=== PATIENT | male | born 1945 | race Caucasian/White ===

== ENCOUNTER → 2021-02-21 08:50 | Outpatient (CLI) | payer MEDICARE, SELFPAY ==
[2021-02-21 10:13] LABS: Absolute Lymphocyte Count 0.96 X10^3/uL (0.83-4.51); Absolute Neutrophil Count 2.7 X10^3/uL (2.0-7.7); Basophil# 0.06 X10^3/uL; Basophil% 1.3 % (0-1); Eosinophil# 0.31 X10^3/uL; Eosinophils% 6.9 % (0-5); Hematocrit 43.7 % (40-54); Hemoglobin 14.2 g/dL (13.0-16.5); Lymphocyte # 0.96 X10^3/ul (0.83-4.51); Lymphocyte % 21.3 % (19-41); Mean Corp Hgb Conc 32.5 g/dL (32-36); Mean Corpuscular Hgb 29.5 pg (27.0-32.0); Mean Corpuscular Volume 90.7 fL (80-94); Mean Platelet Vol. 10.9 fl (6.2-12.0); Monocyte# 0.44 X10^3/uL; Monocyte% 9.8 % (0-10); NRBC Flagged by Analyzer 0 % (0-5); Neutrophil # 2.69 X10^3/uL (2.7-7.7); Neutrophil % 59.8 % (47-70); Platelet Count 212 K/mm3 (150-450); RBC Distribution Width CV 14.5 % (11.6-14.6); RBC Distribution Width SD 48.3 fl (35.1-43.9); Red Blood Count 4.82 M/mm3 (4.6-6.2); White Blood Count 4.5 K/mm3 (4.4-11.0)
[2021-02-21 10:38] LABS: Hemoglobin A1c 6.7 % (3.8-5.6)
[2021-02-21 12:57] LABS: ALB/GLOB Ratio 0.9 RATIO (0.9-2.4); AST(SGOT) 41 U/L (15-37); Alanine Aminotransfer ALT/SGPT 42 U/L (16-61); Albumin, Serum 3.2 g/dL (3.2-5.0); Alkaline Phosphatase 155 U/L (45-117); Anion Gap 8 (5-15); BUN 17 mg/dL (7-18); BUN/Creat Ratio 15.6 RATIO (10-20); Calcium,Total 8.7 mg/dL (8.5-10.1); Chloride 106 mmol/L (98-107); Cholesterol 114 mg/dL (200); Creatinine, Serum 1.09 mg/dL (0.70-1.30); EST Glomerular Filtration Rate 70 mL/min (>60); Est Glom Filt Rate - Afr Amer 85 mL/min (>60); Globulin 3.5 g/dL (2.2-4.2); Glucose 119 mg/dL (74-106); High Density Lipoprotein 53 mg/dL; Potassium 3.7 mmol/L (3.5-5.1); Protein, Total 6.7 g/dL (6.4-8.2); Sodium Level 140 mmol/L (136-145); Thyroid Stim Hormone (TSH) 3.07 uIU/mL (0.358-3.74); Triglycerides 163 mg/dL; Very Low Density Lipoprotein 33 mg/dL (5-40)
[2021-02-21 15:47] LABS: Microalbumin,Random Urine 15.7 mg/L (NO RANGE EST.); Microalbumin:Creatinine Ratio 14.4 mg/g CRE (<30 mg/g CRE)
== END ==
PROVIDERS: PCP Family Medicine; Visit Provider Family Medicine
DX: E11.9 Type 2 diabetes mellitus without complications (principal)
CPT/HCPCS: 36415; 80053; 80061; 82043; 82570; 83036; 84443; 85025

== ENCOUNTER 2021-06-04 09:35 | Outpatient (CLI) | payer MEDICARE, SELFPAY ==
[2021-06-04 12:18] LABS: Absolute Lymphocyte Count 1.21 X10^3/uL (0.83-4.51); Basophil# 0.06 X10^3/uL; Basophil% 1.2 % (0-1); Eosinophil# 0.32 X10^3/uL; Eosinophils% 6.2 % (0-5); Hematocrit 43.7 % (40-54); Hemoglobin 14.3 g/dL (13.0-16.5); Lymphocyte # 1.21 X10^3/ul (0.83-4.51); Lymphocyte % 23.5 % (19-41); Mean Corp Hgb Conc 32.7 g/dL (32-36); Mean Corpuscular Hgb 30.3 pg (27.0-32.0); Mean Corpuscular Volume 92.6 fL (80-94); Mean Platelet Vol. 10.9 fl (6.2-12.0); Monocyte% 9.7 % (0-10); NRBC Flagged by Analyzer 0 % (0-5); Neutrophil # 3.02 X10^3/uL (2.7-7.7); Neutrophil % 58.6 % (47-70); Platelet Count 219 K/mm3 (150-450); RBC Distribution Width CV 13.6 % (11.6-14.6); RBC Distribution Width SD 46.8 fl (35.1-43.9); Red Blood Count 4.72 M/mm3 (4.6-6.2); White Blood Count 5.2 K/mm3 (4.4-11.0)
[2021-06-04 12:49] LABS: Hemoglobin A1c 7.1 % (3.8-5.6)
[2021-06-04 12:54] LABS: AST(SGOT) 38 U/L (15-37); Alanine Aminotransfer ALT/SGPT 40 U/L (16-61); Albumin, Serum 3.5 g/dL (3.2-5.0); Alkaline Phosphatase 174 U/L (45-117); Anion Gap 6 (5-15); BUN 20 mg/dL (7-18); Chloride 106 mmol/L (98-107); Cholesterol 125 mg/dL (200); Creatinine, Serum 1.11 mg/dL (0.70-1.30); EST Glomerular Filtration Rate 69 mL/min (>60); Est Glom Filt Rate - Afr Amer 83 mL/min (>60); Globulin 3.5 g/dL (2.2-4.2); Glucose 143 mg/dL (74-106); High Density Lipoprotein 48 mg/dL; Magnesium 1.9 mg/dL (1.6-2.6); Potassium 3.9 mmol/L (3.5-5.1); Sodium Level 138 mmol/L (136-145); Triglycerides 153 mg/dL
[2021-06-04 12:55] LABS: Thyroid Stim Hormone (TSH) 2.57 uIU/mL (0.358-3.74); Very Low Density Lipoprotein 31 mg/dL (5-40)
[2021-06-05 12:35] LABS: GGTP 64 U/L (15-85)
== END 2021-06-04 23:59 | disposition home or self-care (01) ==
PROVIDERS: PCP Family Medicine; Referring Provider Family Medicine; Visit Provider Family Medicine
DX: R74.8 Abnormal levels of other serum enzymes (principal); I50.22 Chronic systolic (congestive) heart failure; E11.9 Type 2 diabetes mellitus without complications
CPT/HCPCS: 36415; 80053; 80061; 82977; 83036; 83735; 84443; 85025

== ENCOUNTER 2021-06-05 14:08 | Outpatient (CLI) | payer MEDICARE, SELFPAY ==
[2021-06-05 16:01] LABS: Microalbumin,Random Urine 7.7 mg/L (NO RANGE EST.); Microalbumin:Creatinine Ratio 13.8 mg/g CRE (<30 mg/g CRE)
== END 2021-06-05 23:59 | disposition home or self-care (01) ==
LOC: LABSPEC 14:09
PROVIDERS: PCP Family Medicine; Referring Provider Family Medicine; Visit Provider Family Medicine
DX: E11.9 Type 2 diabetes mellitus without complications (principal)
CPT/HCPCS: 82043; 82570

== ENCOUNTER 2021-06-23 15:23 | Emergency (ER) | payer MEDICARE, SELFPAY ==
[2021-06-23 15:23] VITALS: BP 155/66; PULSE 60; RESP 16; TEMP 36.4; O2SAT 98; BMI 38.2
--- NOTE | 2021-06-23 15:50 | EX.ED.UPPERE ---
HPI <JOSETTE Stern - Last Filed: 06/23/21 18:20> History of Present Illness HPI Narrative: 76-year-old male with PMH of diabetes presents with redness on the back of his left hand and wrist that he noticed yesterday. He is right-hand dominant. There was no injury. No fever, chills, nausea, vomiting. No recent IV. No history of DVT/PE or risk factors Chief Complaint: Upper Extremity Injury PFSH <JOSETTE Stern - Last Filed: 06/23/21 18:20> COUNTS INCLUDE 234 BEDS AT THE [facility] Medical History High blood triglycerides High cholesterol History of cardiac murmur History of diabetes mellitus History of heart failure History of skin cancer Hypertension Presence of combination internal cardiac defibrillator (ICD) and pacemaker Ventricular tachycardia Home Medications amiodarone 200 mg tablet 200 mg PO DAILY 12/14/20 [History Last Taken Unknown] aspirin 81 mg tablet,delayed release 81 mg PO DAILY 12/14/20 [History Last Taken Unknown] atorvastatin 20 mg tablet 20 mg PO DAILY 12/14/20 [History Last Taken Unknown] bupropion HCl 150 mg 24 hr tablet, extended release 150 mg PO QAM 12/14/20 [History Last Taken Unknown] dapagliflozin 5 mg-metformin ER 1,000 mg tablet,extended release 24hr 1 tab PO DAILY 12/14/20 [History Last Taken Unknown] lisinopril 2.5 mg tablet 2.5 mg PO DAILY 12/14/20 [History Last Taken Unknown] metoprolol succinate 25 mg tablet,extended release 24 hr 25 mg PO DAILY 12/14/20 [History Last Taken Unknown] mirabegron 25 mg tablet,extended release 24 hr 25 mg PO DAILY 12/14/20 [History Last Taken Unknown] sertraline 50 mg tablet 50 mg PO DAILY 12/14/20 [History Last Taken Unknown] clindamycin HCl 450 mg PO TID 7 Days #63 capsule 06/23/21 [Rx Last Taken Unknown] Allergy/AdvReac Type Severity Reaction Status Date / Time iodine Allergy Unknown unknown Verified 06/23/21 15:23 Penicillins AdvReac Unknown Unknown Verified 06/23/21 15:23 Family History Other Heart disease Hypertension Myocardial infarction Surgical History History of open heart surgery Social History Smoking Status: Never smoker alcohol intake: never substance use type: does not use what type of physical activity do you participate in: walking frequency: daily ROS <JOSETTE Stern - Last Filed: 06/23/21 18:20> ROS ED ROS Narrative Constitutional: Negative for fever, chills, malaise. Eyes: Negative for visual change. ENT: Negative for sore throat, ear pain, rhinorrhea. CVS: Negative for palpitations, chest pain, syncope. Respiratory: Negative for shortness of breath, cough, orthopnea. GI: Negative for abdominal pain, nausea, vomiting, diarrhea, constipation, melena, hematochezia. : Negative for dysuria, hematuria or frequency. Neuro: Negative for headache, motor/sensory dysfunction. Skin: Positive for redness. No abscess or wound. Musc: Negative for joint pain, swelling, trauma. Heme: Negative for easy bruising, bleeding, lymphadenopathy. EXAM <JOSETTE Stern - Last Filed: 06/23/21 18:20> Physical Exam Narrative Exam Narrative: CONST: Patient sitting in no acute distress. EYES: Normal inspection. NECK: Normal inspection. RESP: No respiratory distress, CTAB. CVS: Regular rate and rhythm, no murmur, no gallop. SKIN: Erythema and warmth on the dorsum of the left hand and wrist that extends slightly streak-like up to the elbow. No crepitus or fluctuance. No wounds or breaks in the skin. EXTREMITIES: Slight soft tissue swelling over dorsal left wrist, no significant bony tenderness of the extremity, full range of motion. Normal strength and sensation, 2+ radial pulse. NEURO: Oriented x4. PSYCH: Normal affect. Const Vital Signs: 06/23/21 15:23 Temperature 97.6 F L Temperature Source Temporal Pulse Rate 60 Respiratory Rate 16 Blood Pressure 155/66 H Blood Pressure Mean 95 Pulse Ox 98 Oxygen Delivery Method Room Air MDM <JOSETTE Stern - Last Filed: 06/23/21 18:20> MDM MDM Narrative Medical decision making narrative: Patient presents with 24-hour history of erythema on his left hand. He appears well and nontoxic. Afebrile and vital signs unremarkable. He has erythema and warmth on the dorsal surface of his left hand wrist and extending up to the elbow. He does have some dry cracked skin but no obvious wounds. He has full range of motion of elbow and wrist and hands have no concern for septic arthritis. It is not consistent with DVT more likely cellulitis. Blood work was obtained which shows normal white count and well-controlled blood sugars. Patient was given the first dose of oral clindamycin 450 mg here with prescription for home x1 week. He was counseled on return precautions and discharged in stable condition. 1. Cellulitis, left arm <Dr. Dwayne Parker MD - Last Filed: 06/23/21 22:53> MDM MDM Narrative Medical decision making narrative: Patient has erythema warmth of the back of his left hand. He has had this for about a day or so. No trauma. No pain with motion of joints. No fevers chills sweats nausea or vomiting. He is diabetic. Exam shows warmth and erythema this well demarcated. There is some dry and fissured skin on the dorsum of his hand that could allow bacteria in. There is also some skin breaks around his nails and cuticles. No pain with motion of the joints. We will treat with antibiotics. We discussed reasons to return. Discharge Plan Triage Chief Complaint: Upper Extremity Injury ED Provider: Kerrie Wiggins Dx/Rx/DC Orders Clinical Impression: Cellulitis of arm, left Instructions: ED Cellulitis Prescriptions: New clindamycin HCl 150 mg capsule 450 mg PO TID 7 Days Qty: 63 RF: 0 No Action lisinopril 2.5 mg tablet 2.5 mg PO DAILY RF: 0 bupropion HCl 150 mg tablet extended release 24 hr 150 mg PO QAM RF: 0 sertraline [Zoloft] 50 mg tablet 50 mg PO DAILY RF: 0 amiodarone 200 mg tablet 200 mg PO DAILY RF: 0 atorvastatin [Lipitor] 20 mg tablet 20 mg PO DAILY RF: 0 aspirin [Adult Aspirin Regimen] 81 mg tablet,delayed release (DR/EC) 81 mg PO DAILY RF: 0 metoprolol succinate 25 mg tablet extended release 24 hr 25 mg PO DAILY RF: 0 Xigduo XR 5-1,000 mg tablet, IR - ER, biphasic 24hr 1 tab PO DAILY RF: 0 Myrbetriq 25 mg tablet extended release 24 hr 25 mg PO DAILY RF: 0 Primary Care Provider: Nathaniel Herman Referrals: Nathaniel Herman MD [Primary Care Provider] - Activity Restrictions/Additional Instructions: Yet appears to be cellulitis which is a skin infection that is treated with antibiotics. You were given the first dose of clindamycin here and a 1 week prescription was sent to your pharmacy. You take this 3 times a day. If the redness continues to spread or you feel ill with a fever etc. come back to the emergency room. Disposition Disposition: Home, Self Care Discharge Date/Time: 06/23/21 16:55
[2021-06-23 16:09] LABS: Absolute Lymphocyte Count 1.28 X10^3/uL (0.83-4.51); Absolute Neutrophil Count 4.7 X10^3/uL (2.0-7.7); Basophil# 0.07 X10^3/uL; Eosinophil# 0.28 X10^3/uL; Hematocrit 44.7 % (40-54); Hemoglobin 14.6 g/dL (13.0-16.5); Lymphocyte # 1.28 X10^3/ul (0.83-4.51); Lymphocyte % 18.2 % (19-41); Mean Corp Hgb Conc 32.7 g/dL (32-36); Mean Corpuscular Hgb 30.2 pg (27.0-32.0); Mean Corpuscular Volume 92.4 fL (80-94); Mean Platelet Vol. 10.5 fl (6.2-12.0); Monocyte# 0.63 X10^3/uL; NRBC Flagged by Analyzer 0 % (0-5); Neutrophil % 66.9 % (47-70); Platelet Count 235 K/mm3 (150-450); RBC Distribution Width CV 13.5 % (11.6-14.6); RBC Distribution Width SD 46.6 fl (35.1-43.9); Red Blood Count 4.84 M/mm3 (4.6-6.2)
[2021-06-23 16:35] LABS: Anion Gap 7 (5-15); BUN 20 mg/dL (7-18); BUN/Creat Ratio 15.4 RATIO (10-20); Calcium,Total 9.1 mg/dL (8.5-10.1); Chloride 106 mmol/L (98-107); EST Glomerular Filtration Rate 57 mL/min (>60); Est Glom Filt Rate - Afr Amer 69 mL/min (>60); Glucose 120 mg/dL (74-106); Potassium 4.5 mmol/L (3.5-5.1); Sodium Level 138 mmol/L (136-145)
[2021-06-23] MEDS: Clindamycin HCl 150 MG Capsule 450 MG PO (16:50)
== END 2021-06-23 16:55 | disposition home or self-care (01) ==
PROVIDERS: Emergency Provider Physician Assistant; PCP Family Medicine; Visit Provider Physician Assistant
DX: L03.114 Cellulitis of left upper limb (principal); I11.0 Hypertensive heart disease with heart failure; I50.9 Heart failure, unspecified; E11.9 Type 2 diabetes mellitus without complications; E78.00 Pure hypercholesterolemia, unspecified; Z95.810 Presence of automatic (implantable) cardiac defibrillator; Z79.899 Other long term (current) drug therapy; Z79.82 Long term (current) use of aspirin
CPT/HCPCS: 80048; 85025; 99283; A4216

== ENCOUNTER → 2021-08-08 | Outpatient (CLI) | payer MEDICARE, SELFPAY ==
[2021-08-08 10:51] LABS: AST(SGOT) 58 U/L (15-37); Alanine Aminotransfer ALT/SGPT 43 U/L (16-61); Anion Gap 7 (5-15); BUN 25 mg/dL (7-18); BUN/Creat Ratio 22.5 RATIO (10-20); Calcium,Total 9.1 mg/dL (8.5-10.1); Chloride 107 mmol/L (98-107); Cholesterol 108 mg/dL (200); Creatinine, Serum 1.11 mg/dL (0.70-1.30); EST Glomerular Filtration Rate 69 mL/min (>60); Est Glom Filt Rate - Afr Amer 83 mL/min (>60); Glucose 138 mg/dL (74-106); High Density Lipoprotein 49 mg/dL; Potassium 4.1 mmol/L (3.5-5.1); Sodium Level 139 mmol/L (136-145); Triglycerides 174 mg/dL; Very Low Density Lipoprotein 35 mg/dL (5-40)
[2021-08-08 17:57] LABS: Microalbumin,Random Urine 10.7 mg/L (NO RANGE EST.)
== END | disposition home or self-care (01) ==
LOC: MFPLAB 09:10
PROVIDERS: PCP Family Medicine; Referring Provider Family Medicine; Visit Provider Internal Medicine Endocrinology, Diabetes & Metabolism
DX: E78.2 Mixed hyperlipidemia (principal); Z79.84 Long term (current) use of oral hypoglycemic drugs
CPT/HCPCS: 36415; 80048; 80061; 82043; 83036; 84450; 84460

== ENCOUNTER → 2021-08-24 | Outpatient (CLI) | payer MEDICARE, SELFPAY ==
--- NOTE | 2021-08-24 12:37 | US_ITS ---
STUDY: ULTRASOUND - URINARY BLADDER REASON FOR EXAM: Male, 76 years old. OVERACTIVE BLADDER TECHNIQUE: Ultrasound evaluation of the urinary bladder was performed with real-time and static mack-scale imaging. COMPARISON: None. FINDINGS: There is no right UVJ calculus. There is a non-visualization of a right ureteral jet. There is no left UVJ calculus. There is a non-visualization of a left ureteral jet. The distended volume of the urinary bladder is 143 ml. The empty volume of the urinary bladder is 41 ml. The bladder wall is within normal limits. The bladder wall measures 4 mm. There is no demonstrated bladder wall mass lesion. There are no demonstrated bladder calculi. US/Post Void Residual Bladder IMPRESSION: Small post void residual. Electronically Signed: Aubrey Shah MD at 14:20 EDT ,
== END | disposition home or self-care (01) ==
LOC: US 12:34
PROVIDERS: PCP Family Medicine; Referring Provider Family Medicine; Visit Provider Family Medicine
DX: N32.81 Overactive bladder (principal); N39.43 Post-void dribbling
CPT/HCPCS: 51798

== ENCOUNTER → 2021-10-16 | Outpatient (CLI) | payer MEDICARE, SELFPAY ==
[2021-10-16 12:14] LABS: Basophil# 0.06 X10^3/uL; Basophil% 1.2 % (0-1); Eosinophil# 0.27 X10^3/uL; Eosinophils% 5.5 % (0-5); Hematocrit 42.1 % (40-54); Hemoglobin 13.7 g/dL (13.0-16.5); Lymphocyte % 22.2 % (19-41); Mean Corp Hgb Conc 32.5 g/dL (32-36); Mean Corpuscular Hgb 29.5 pg (27.0-32.0); Mean Corpuscular Volume 90.5 fL (80-94); Mean Platelet Vol. 11.2 fl (6.2-12.0); Monocyte# 0.47 X10^3/uL; Monocyte% 9.5 % (0-10); NRBC Flagged by Analyzer 0 % (0-5); Neutrophil % 60.6 % (47-70); Platelet Count 189 K/mm3 (150-450); RBC Distribution Width CV 13.8 % (11.6-14.6); Red Blood Count 4.65 M/mm3 (4.6-6.2)
[2021-10-16 13:10] LABS: AST(SGOT) 36 U/L (15-37); Alanine Aminotransfer ALT/SGPT 40 U/L (16-61); Albumin, Serum 3.3 g/dL (3.2-5.0); Alkaline Phosphatase 154 U/L (45-117); Anion Gap 5 (5-15); BUN 19 mg/dL (7-18); BUN/Creat Ratio 18.4 RATIO (10-20); Chloride 105 mmol/L (98-107); Cholesterol 105 mg/dL (200); Creatinine, Serum 1.03 mg/dL (0.70-1.30); EST Glomerular Filtration Rate 75 mL/min (>60); Est Glom Filt Rate - Afr Amer 91 mL/min (>60); Globulin 3.4 g/dL (2.2-4.2); Glucose 209 mg/dL (74-106); High Density Lipoprotein 50 mg/dL; Magnesium 2.2 mg/dL (1.6-2.6); Potassium 4.3 mmol/L (3.5-5.1); Protein, Total 6.7 g/dL (6.4-8.2); Sodium Level 136 mmol/L (136-145); Triglycerides 148 mg/dL; Very Low Density Lipoprotein 30 mg/dL (5-40)
[2021-10-16 14:54] LABS: Hemoglobin A1c 7.5 % (3.8-5.6)
== END | disposition home or self-care (01) ==
LOC: MFPLAB 09:31
PROVIDERS: PCP Family Medicine; Visit Provider Family Medicine
DX: I25.10 Atherosclerotic heart disease of native coronary artery without angina pectoris (principal); I47.2 Ventricular tachycardia; E11.9 Type 2 diabetes mellitus without complications
CPT/HCPCS: 36415; 80053; 80061; 83036; 83735; 85025

== ENCOUNTER → 2022-02-07 | Outpatient (CLI) | payer MEDICARE, SELFPAY ==
--- NOTE | 2022-02-07 12:39 | RAD_ITS ---
STUDY: X-RAY CHEST REASON FOR EXAM: Male, 76 years old. BRONCHITIS TECHNIQUE: PA and lateral views of the chest. COMPARISON: None. FINDINGS: There is a visualized pacer defibrillator overlying the left chest with the leads overlying the heart. There is a small focal opacity in the right lung base. There is elevation of the right greater than left hemidiaphragm. There is no demonstrated pleural abnormality. Sternal cerclage wires are present from a prior sternotomy. Normal mediastinum and faith. Normal visualized pulmonary arteries. There is atherosclerotic calcification of the aortic arch with tortuosity. Normal visualized thoracic spine. Normal visualized ribs, clavicles, and shoulders. There is no demonstrated abnormality of the visualized soft tissue structures of the upper abdomen. RAD/Chest PA and Lateral IMPRESSION: Small focal density right lung base which could potentially represent a small focus of atelectasis and/or infiltrate. Status post sternotomy. Defibrillator. Electronically Signed: Sona Chery MD at 18:13 [facility] Reading Location ID and State: [facility] / [place] Tel , Service support ,
== END | disposition home or self-care (01) ==
LOC: MTRAD 12:38
PROVIDERS: PCP Family Medicine; Referring Provider Family Medicine; Visit Provider Family Medicine
DX: J20.9 Acute bronchitis, unspecified (principal)
CPT/HCPCS: 71046

== ENCOUNTER → 2022-02-22 | Outpatient (CLI) | payer MEDICARE, SELFPAY ==
--- NOTE | 2022-02-22 13:00 | RAD_ITS ---
STUDY: X-RAY CHEST REASON FOR EXAM: Male, 76 years old. Follow-up of pneumonia. Bronchitis. TECHNIQUE: Frontal and lateral views of the chest. COMPARISON: February 07, 2022. FINDINGS: Stable mild hyperinflation. There is no demonstrated pleural abnormality. Cardiomegaly with sternotomy wires and dual lead cardiac pacer, unchanged. Normal mediastinum and faith. Normal visualized pulmonary arteries. Stable aortic tortuosity. Diffuse moderate thoracic spondylosis unchanged. Normal visualized ribs, clavicles, and shoulders. There is no demonstrated abnormality of the visualized soft tissue structures of the upper abdomen. RAD/Chest PA and Lateral IMPRESSION: Stable chest with no acute superimposed finding. Electronically Signed: James Ray, at 13:42 EST ,
== END | disposition home or self-care (01) ==
LOC: MTRAD 13:00
PROVIDERS: PCP Family Medicine; Referring Provider Family Medicine; Visit Provider Family Medicine
DX: J18.9 Pneumonia, unspecified organism (principal)
CPT/HCPCS: 71046

== ENCOUNTER → 2022-03-13 | Outpatient (CLI) | payer MEDICARE, SELFPAY ==
[2022-03-13 15:28] LABS: Absolute Lymphocyte Count 1.21 X10^3/uL (0.83-4.51); Absolute Neutrophil Count 3.7 X10^3/uL (2.0-7.7); Basophil# 0.08 X10^3/uL; Basophil% 1.4 % (0-1); Eosinophil# 0.28 X10^3/uL; Eosinophils% 4.8 % (0-5); Hematocrit 45.8 % (40-54); Lymphocyte # 1.21 X10^3/ul (0.83-4.51); Lymphocyte % 20.8 % (19-41); Mean Corp Hgb Conc 32.8 g/dL (32-36); Mean Corpuscular Hgb 30.2 pg (27.0-32.0); Mean Corpuscular Volume 92.3 fL (80-94); Mean Platelet Vol. 10.6 fl (6.2-12.0); Monocyte# 0.45 X10^3/uL; Monocyte% 7.7 % (0-10); NRBC Flagged by Analyzer 0 % (0-5); Neutrophil # 3.72 X10^3/uL (2.7-7.7); Neutrophil % 63.8 % (47-70); Platelet Count 259 K/mm3 (150-450); RBC Distribution Width CV 13.7 % (11.6-14.6); RBC Distribution Width SD 46.6 fl (35.1-43.9); Red Blood Count 4.96 M/mm3 (4.6-6.2); White Blood Count 5.8 K/mm3 (4.4-11.0)
[2022-03-13 16:15] LABS: Hemoglobin A1c 6.8 % (3.8-5.6)
[2022-03-13 16:29] LABS: ALB/GLOB Ratio 1.1 RATIO (0.9-2.4); AST(SGOT) 43 U/L (15-37); Alanine Aminotransfer ALT/SGPT 41 U/L (16-61); Albumin, Serum 3.5 g/dL (3.2-5.0); Alkaline Phosphatase 148 U/L (45-117); Anion Gap 7 (5-15); BUN 19 mg/dL (7-18); BUN/Creat Ratio 17.1 RATIO (10-20); Calcium,Total 8.7 mg/dL (8.5-10.1); Chloride 105 mmol/L (98-107); Cholesterol 118 mg/dL (200); Creatinine, Serum 1.11 mg/dL (0.70-1.30); EST Glomerular Filtration Rate 69 mL/min (>60); Est Glom Filt Rate - Afr Amer 83 mL/min (>60); Globulin 3.1 g/dL (2.2-4.2); Glucose 118 mg/dL (74-106); High Density Lipoprotein 58 mg/dL; Potassium 4.3 mmol/L (3.5-5.1); Protein, Total 6.6 g/dL (6.4-8.2); Sodium Level 139 mmol/L (136-145); Thyroid Stim Hormone (TSH) 2.34 uIU/mL (0.358-3.74); Triglycerides 129 mg/dL; Very Low Density Lipoprotein 26 mg/dL (5-40)
== END | disposition home or self-care (01) ==
LOC: MFPLAB 12:16
PROVIDERS: PCP Family Medicine; Visit Provider Family Medicine
DX: E11.9 Type 2 diabetes mellitus without complications (principal)
CPT/HCPCS: 36415; 80053; 80061; 83036; 84443; 85025

== ENCOUNTER → 2022-03-15 | Outpatient (CLI) | payer MEDICARE, SELFPAY ==
--- NOTE | 2022-03-15 11:46 | US_ITS ---
STUDY: THYROID ULTRASOUND REASON FOR EXAM: Male, 76 years old. Thyroid nodules. TECHNIQUE: Ultrasound evaluation of the thyroid was performed with real-time and static mack-scale imaging. COMPARISON: None. FINDINGS: RIGHT LOBE: The right lobe of the thyroid gland measures 4.6 cm x 1.9 cm x 2.2 cm. There is a heterogeneous echotexture. There is a 4 mm x 4 mm x 4 mm well-defined hypoechoic solid nodule in the midportion of the thyroid lobe. LEFT LOBE: The left lobe of the thyroid gland measures 4.5 cm x 1.6 cm x 2.1 cm. There is a heterogeneous echotexture. There are no demonstrated solid, cystic or complex lesions. ISTHMUS: The isthmus measures 7 mm. The regional lymph nodes are normal. US/Thyroid IMPRESSION: Heterogeneous echotexture of both lobes of the thyroid gland. 4 mm x 4 mm x 4 mm hypoechoic solid nodule in the midportion of the right lobe of the thyroid. Electronically Signed: Aubrey Shah MD at 14:17 EST ,
== END | disposition home or self-care (01) ==
LOC: US 11:45
PROVIDERS: PCP Family Medicine; Referring Provider Family Medicine; Visit Provider Family Medicine
DX: E04.1 Nontoxic single thyroid nodule (principal)
CPT/HCPCS: 76536

== ENCOUNTER → 2022-05-14 | Outpatient (CLI) | payer MEDICARE, SELFPAY ==
[2022-05-14 13:04] LABS: Absolute Lymphocyte Count 1.02 X10^3/uL (0.83-4.51); Absolute Neutrophil Count 3.7 X10^3/uL (2.0-7.7); Basophil# 0.06 X10^3/uL; Basophil% 1.1 % (0-1); Eosinophil# 0.26 X10^3/uL; Eosinophils% 4.7 % (0-5); Hematocrit 46.3 % (40-54); Hemoglobin 14.6 g/dL (13.0-16.5); Lymphocyte # 1.02 X10^3/ul (0.83-4.51); Lymphocyte % 18.3 % (19-41); Mean Corp Hgb Conc 31.5 g/dL (32-36); Mean Corpuscular Volume 91.9 fL (80-94); Mean Platelet Vol. 11.1 fl (6.2-12.0); Monocyte# 0.46 X10^3/uL; Monocyte% 8.2 % (0-10); NRBC Flagged by Analyzer 0 % (0-5); Neutrophil # 3.74 X10^3/uL (2.7-7.7); Platelet Count 205 K/mm3 (150-450); RBC Distribution Width CV 14.1 % (11.6-14.6); RBC Distribution Width SD 47.9 fl (35.1-43.9); Red Blood Count 5.04 M/mm3 (4.6-6.2); White Blood Count 5.6 K/mm3 (4.4-11.0)
[2022-05-14 13:20] LABS: AST(SGOT) 45 U/L (15-37); Alanine Aminotransfer ALT/SGPT 39 U/L (16-61); Albumin, Serum 3.5 g/dL (3.2-5.0); Alkaline Phosphatase 117 U/L (45-117); Anion Gap 8 (5-15); BUN 22 mg/dL (7-18); BUN/Creat Ratio 17.9 RATIO (10-20); Calcium,Total 8.9 mg/dL (8.5-10.1); Chloride 109 mmol/L (98-107); Cholesterol 120 mg/dL (200); Creatinine, Serum 1.23 mg/dL (0.70-1.30); EST Glomerular Filtration Rate 61 mL/min (>60); Est Glom Filt Rate - Afr Amer 74 mL/min (>60); Globulin 3.6 g/dL (2.2-4.2); Glucose 128 mg/dL (74-106); High Density Lipoprotein 51 mg/dL; PSA,Total - Annual Screen 0.19 ng/mL (0.00-4.00); Potassium 4.1 mmol/L (3.5-5.1); Protein, Total 7.1 g/dL (6.4-8.2); Sodium Level 140 mmol/L (136-145); Thyroid Stim Hormone (TSH) 3.08 uIU/mL (0.358-3.74); Triglycerides 167 mg/dL; Very Low Density Lipoprotein 33 mg/dL (5-40)
[2022-05-14 13:38] LABS: Hemoglobin A1c 6.3 % (3.8-5.6)
== END | disposition home or self-care (01) ==
LOC: MFPLAB 11:18
PROVIDERS: PCP Family Medicine; Referring Provider Family Medicine; Visit Provider Family Medicine
DX: E11.9 Type 2 diabetes mellitus without complications (principal); Z12.5 Encounter for screening for malignant neoplasm of prostate
CPT/HCPCS: 36415; 80053; 80061; 83036; 84153; 84443; 85025; G0103

== ENCOUNTER → 2022-05-15 | Outpatient (CLI) | payer MEDICARE, SELFPAY ==
[2022-05-15 16:05] LABS: Microalbumin,Random Urine 6.1 mg/L (NO RANGE EST.); Microalbumin:Creatinine Ratio 10.5 mg/g CRE (<30 mg/g CRE)
== END | disposition home or self-care (01) ==
LOC: MFPLAB 12:23
PROVIDERS: PCP Family Medicine; Referring Provider Family Medicine; Visit Provider Family Medicine
DX: E11.9 Type 2 diabetes mellitus without complications (principal)
CPT/HCPCS: 82043; 82570

== ENCOUNTER → 2022-07-23 | Outpatient (CLI) | payer MEDICARE, SELFPAY ==
--- NOTE | 2022-07-23 15:02 | RAD_ITS ---
STUDY: X-RAY CHEST REASON FOR EXAM: Male, 77 years old. Fall. Left rib pain. TECHNIQUE: Frontal and lateral views of the chest on 3 images. COMPARISON: January 2022. FINDINGS: Cardiomegaly, sternotomy wires, dual lead cardiac pacer, aortic tortuosity, hyperinflation, scattered healed parenchymal granulomatous calcifications and diffuse mild thoracic spondylosis with thoracolumbar scoliosis, all unchanged. No acute abnormality. No abnormality of the visualized soft tissue structures of the upper abdomen. RAD/Chest PA and Lateral IMPRESSION: Stable chest with no acute superimposed finding. Electronically Signed: James Ray MD at 15:38 EDT ,
== END | disposition home or self-care (01) ==
LOC: MTRAD 15:00
PROVIDERS: PCP Family Medicine; Referring Provider Nurse Practitioner Family; Visit Provider Nurse Practitioner Family
DX: R07.81 Pleurodynia (principal)
CPT/HCPCS: 71046

== ENCOUNTER → 2022-08-23 | Outpatient (CLI) | payer MEDICARE, SELFPAY ==
--- NOTE | 2022-08-23 11:26 | RAD_ITS ---
STUDY: X-RAY CHEST REASON FOR EXAM: Male, 77 years old. cough TECHNIQUE: Frontal and lateral views of the chest. COMPARISON: 07/23/2022. FINDINGS: There is hyperinflation of the lungs consistent with chronic obstructive lung disease (COPD). No infiltrates or effusions. There is no demonstrated pleural abnormality. Normal size heart. Previous CABG. Pacemaker is seen with leads terminating in the right atrium and right ventricle. Normal mediastinum and faith. There is prominence of the pulmonary hilar arteries without peripheral pulmonary vascular congestion, suggesting pulmonary hypertension. Normal visualized aortic arch and descending thoracic aorta. There are diffuse degenerative changes of the visualized thoracic spine. Normal visualized ribs, clavicles, and shoulders. There is no demonstrated abnormality of the visualized soft tissue structures of the upper abdomen. RAD/Chest PA and Lateral IMPRESSION: There are findings consistent with COPD. There is no evidence of acute chest disease. Electronically Signed: Jacinto Pantoja MD at 22:37 EDT ,
== END | disposition home or self-care (01) ==
LOC: MTRAD 11:26
PROVIDERS: PCP Family Medicine; Referring Provider Family Medicine; Visit Provider Family Medicine
DX: R05.9 Cough, unspecified (principal)
CPT/HCPCS: 71046

== ENCOUNTER → 2023-04-16 | Outpatient (CLI) | payer MEDICARE, SELFPAY ==
--- OUTSIDE RECORDS SUMMARY | 2023-04-16 09:59 | XMS RPT_ITS | CCD ---
Author Name Unknown Address [facility] [address] [place] [address] Organization [facility] Care Team Providers Care Charge Lpn Name Role Phone NIRAJ MORENO Unavailable Unavailable DICK JONES Unavailable Unavailable NIRAJ MORENO Unavailable Unavailable HEATHER CABALLERO Attending Unavailable HEATHER CABALLERO Primary Care Unavailable ADA MYRICK-HEATHER HOLT Primary Care Physi jessika Unavailable Primary Care Provider Unavailcoby DOWNEY MD, NIRAJ Primary Care Physician PETER STONE, MEL Reece Attending Unavailable NIRAJ DOWNEY MD Primary Care Unavailable YOLANDA TOURE JESSEE L Attending Unavailable NIRAJ DOWNEY MD Primary Care Unavailable NIRAJ MORENO MD Attending Unavailable NIRAJ DOWNEY MD Primary Care Unavailable PETER STONE, MEL Reece Attending Unavailable NIRAJ DOWNEY MD Primary Care Unavailable MEL GREEN MD Attending Unavailable NIRAJ DOWNEY MD Primary Care Unavailable Allergies Allergy Classification Reported Allergen(s) Allergy Type Date of Onset Reaction(s) Facility (3 sources) Contrast media Drug allergy hives/itching [facility] Work Phone: (3 sources) Iodine; Translations: [iodine] Drug Allergy hives, hives/itching [facility] Work Phone: (3 sources) Penicillin; Translations: [penicillin] Drug Allergy hives [facility] Work Phone: (3 sources) Pravastatin; Translations: [pravastatin] Drug Allergy neuralgias, myalgias [facility] Work Phone: (3 sources) rosuvastatin; Translations: [rosuvastatin] Drug Allergy neuralgias, myalgias [facility] Work Phone: (3 sources) Simvastatin; Translations: [simvastatin] Drug Allergy neuralgias, myalgias [facility] Work Phone: (3 sources) Sulfamethoxazole ; Translations: [sulfamethoxazol e] Drug Allergy [facility] Work Phone: (1 source) Grass pollen Drug Intolerance 2 Intolerance [facility] (1 source) Penicillins Propensity to adverse reactions to drug 2 [facility] (1 source) Sulfonamides (Antibiotic) Drug Intolerance 2 [facility] (1 source) Iodinated Contrast Media Propensity to adverse reactions to drug 2 [facility] Medications Current Medications Medication Drug Class(es) Dates Sig (Normalized) Sig (Original) 8 hr acetaminophen 650 mg extended release oral tablet (4 sources) Start: 07-02-2018 take 1 mg by mouth every eight hours Tylenol 8 Hour 650 mg oral tablet, extended release mg = tab(s), Oral, q8h, 0 Refill(s) Start Date: 07/02/18 Status: Ordered Completed/Discontinued Medications Medication Drug Class(es) Dates Sig (Normalized) Sig (Original) 24 hr fexofenadine hydrochloride 180 mg / pseudoephedrine hydrochloride 240 mg extended release oral tablet (1 source) alpha-Adrenergic Agonist, Histamine-1 Receptor Antagonist take 1 tablet by mouth once daily, then take 1 tablet by mouth every twenty-four hours Fexofenadine-Pseud oephedrine (CHELSEY-D 24 HOUR) 180-240 mg per 24 hr tablet Take 1 tablet by mouth once daily. 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 Past or Other Problems Problem Classification Problem Date Documented Da te Episodic/Chronic Unclassified (1 source) CAD Onset: 08-29-2016 Results Test Name Value Interpretation Reference Range Facil ity Vital Signs Date Time Vital Sign Value Performing Clinician Laurita srpinger 06-23-2021 15:06-0400 Body temperature 98.6 [degF] Paulina Zamora DAY TREATMENT CLINICIAN/ART THERAPIST.JEWELRY BEARING [employer]KER Work Phone: [facility] 06-23-2021 15:06-0400 Body weight 124.74 kg Paulina Zamora DAY TREATMENT CLINICIAN/ART THERAPIST.JEWELRY [employer]AR[employer]KER Work Phone: [facility] 06-23-2021 15:06-0400 Diastolic blood pressure 60 mm[Hg] Paulina Zamora DAY TREATMENT CLINICIAN/ART THERAPIST.JEWELRY [employer]AR[employer]KER Work Phone: [facility] 06-23-2021 15:06-0400 Heart rate 60 /min Paulina Zamora DAY TREATMENT CLINICIAN/ART THERAPIST.JEWELRY [employer]AR[employer]KER Work Phone: [facility] 06-23-2021 15:06-0400 Respiratory rate 18 /min Paulina Zamora DAY TREATMENT CLINICIAN/ART THERAPIST.JEWELRY [employer]AR[employer]KER Work Phone: [facility] 06-23-2021 15:06-0400 SaO2% (BldA) [Mass fraction] 94 % Paulina Zamora DAY TREATMENT CLINICIAN/ART THERAPIST.JEWELRY [employer]ARING [employer]KER Work Phone: [facility] 06-23-2021 15:06-0400 Systolic blood pressure 122 mm[Hg] Paulina Zamora DAY TREATMENT CLINICIAN/ART THERAPIST.JEWELRY [employer]AR[employer]KER Work Phone: [facility] Encounters Encounter Date Encounter Type Care Provider Facility Start: 01-07-2023 ambulatory NIRAJ MORENO MD Fac ility:A Start: 09-24-2022 ambulatory MEL GREEN MD Fac ility:A Start: 09-11-2022 End: 09-12-2022 ambulatory MEL GREEN MD Facility:A Start: 09-11-2022 End: 09-11-2022 Patient encounter procedure MEL GREEN MD [facility] Start: 03-25-2022 End: 03-26-2022 ambulatory JESSEE GUERRERO PA-C Facility:A Start: 03-25-2022 End: 03-25-2022 Patient encounter procedure JESSEEJERRI GUERRERO PA-C [facility] Start: 06-23-2021 End: 06-23-2021 Patient encounter procedure Paulina Zamora DAY TREATMENT CLINICIAN/ART THERAPIST.JEWELRY BEARING MAKER Work Phone: [facility] Procedures Date Procedure Procedure Detail Performing Clinician Start: 12-01-2020 Echocardiography JESSEE GUERRERO PA-C Plan of Treatment Date Care Activity Detail Author Start: 02-24-2021 ADVANCE DIRECTIVE DISCUSSION ADVANCE DIRECTIVE DISCUSSION [facility] Start: 2012 PNEUMOVAX AGE 65 AND OVER WITH 5YR LOOKBACK (#1) PNEUMOVAX AGE 65 AND OVER WITH 5YR LOOKBACK (#1) [facility] Start: 1997 SHINGRIX VACCINE (1 of 2) SHINGRIX V ACCINE (1 of 2) [facility] Start: 1992 COLOGUARD (FIT-DNA) COLOGUARD (FIT-D NA) [facility] Start: 1992 Colonoscopy COLONOSCOPY [facility] Start: 1992 COLORECTAL CANCER SCREENING COLORECTAL CANCER SCREENING [facility] Start: [address] COLONOGRAPHY [facility] Start: 1992 DIABETES SCREEN DIABETES SCREEN [facility] Start: 1992 FECAL OCCULT BLOOD FECAL OCCULT BLOO D [facility] Start: 1992 SIGMOIDOSCOPY SIGMOIDOSCOPY [facility] Start: 1982 LIPID SCREEN LIPID SCREEN [facility] Start: 1966 Urine microalbumin profile DTAP,TDAP ,TD (1 - Tdap) [facility] Start: 1965 HEPATITIS C SCREENING HEPATITIS C SC REENING [facility] Start: 1959 Adult depression scr eening assessment DEPRESSION SCREENING [facility] Immunizations Immunization Date Immunization Notes Care Provider Ran johnson 12-11-2017 pneumococcal polysaccharide vaccine, 23 gricel DOWNEY MD [facility] 05-19-2014 pneumococcal conjuga te vaccine, 13 gricel DOWNEY MD [facility] 05-19-2014 tetanus and diphther ia toxoids, adsorbed, preservative free, for adult use (5 Lf of tetanus toxoid and 2 Lf of diphtheria toxoid) NIRAJ DOWNEY MD [facility] 03-15-2010 zoster vaccine, live NIRAJ VILLARREAL MD [facility] Payers Date Payer Category Payer Unknown [id number] 2022 Unknown [id number] 2021 Unknown PRIMETIME [employer]IMET [employer]IC[employer] HMO POS [id number] 2021-Present [phone] [address] [place] [address] O [id number] 2018 Medicare [id number] 2003 Unknown [id number] 1947 Unknown [id number] 1947 Unknown [id number] 1947 Unknown [id number] 1947 Unknown [id number] 1947 Unknown [id number] 1947 Unknown [id number] Social History Date Type Detail Facility Start: 05-08-2018 End: 06-23-2021 Never smoked tobacco (finding) [facility] Sex Assigned At Male [facility] Start: 06-23-2021 Tobacco use and exposure Smokeless tobacco non-user [facility] Start: 1945 Sex Assigned At Not on file [facility] Start: 06-13-2021 End: 06-23-2021 Exposure to SARS-CoV-2 (event) Not sure [facility] Progress note 06-23-2021 Note Date & Type Note Facility 06-23-2021 Note HNO ID: [id number] Author: Paulina Zamora APRN.CNP Service: ? Author Type: Nurse Practitioner Type: Progress Notes Filed: 06/23/2021 3:23 PM Note Text: 76 year old male presents with left hand forearm swelling. Denies trauma or injury. at bedside and states she is concerned for a blood clot. Discussed inability to obtain US study Directed to ED No charge [facility] History of Present illness Narrative 06-23-2021 Paulina Zamora APRN.CNP - 06/23/2021 3:19 PM EDT Note Date & Type Note Facility 06-23-2021 History of Presen t illness Narrative 76 year old male presents with left hand forearm swelling. Denies trauma or injury. at bedside and states she is concerned for a blood clot. Discussed inability to obtain US study Directed to ED No charge documented in this encounter [facility] Evaluation + Plan note Radiology Note Date & Type Note Facility Evaluation + Plan note Future Appointments Appointment Date:02/27/2021 03:15:00 PM Scheduled Provider: Location:[facility] Appointment Type:CV OV Appointment Date:04/17/2021 10:30:00 AM Scheduled Provider: Location:[facility] Appointment Type:CV Remote Procedure HM Appointment Date:04/20/2021 01:00:00 PM Scheduled Provider:LEONARDA FLANNERY APRN-JONATHON Location:UROLOGY Appointment Type:URO OV Future Scheduled TestsXR Chest 2 Views (PA & Lateral) 11/27/20 [facility] Evaluation + Plan note LaboratoryRadiology Note Date & Type Note Facility Evaluation + Plan note Future Appointments Appointment Date:04/01/2022 11:30:00 AM Scheduled Provider:DEAN CORCORAN MD Location:[facility] Appointment Type:Telehealth Appointment Date:05/27/2022 11:45:00 AM Scheduled Provider: Location:[facility] Appointment Type:CV Remote Procedure HM Appointment Date:07/09/2022 02:15:00 PM Scheduled Provider: Location:[facility] Appointment Type:CV OV Future Scheduled TestsThyroid Stimulating Hormone 01/01/22Complete Metabolic Panel 01/01/22XR Chest 2 Views (PA & Lateral) 01/01/22 [facility] Evaluation + Plan note LaboratoryRadiology Note Date & Type Note Facility Evaluation + Plan note Future Appointments Appointment Date:10/14/2022 11:00:00 AM Scheduled Provider: Location:[facility] Appointment Type:CV OV Appointment Date:12/16/2022 09:00:00 AM Scheduled Provider: Location:[facility] Appointment Type:CV Remote Procedure HM Appointment Date:05/09/2023 11:00:00 AM Scheduled Provider:DEAN CORCORAN MD Location:[facility] Appointment Type:Telehealth Future Scheduled TestsThyroid Stimulating Hormone 01/01/22Complete Metabolic Panel 01/01/22XR Chest 2 Views (PA & Lateral) 01/01/22 [facility] Evaluation note Note Date & Type Note Facility documented in this encounter [facility] course Narrative Note Date & Type Note Facility Hospital course Narrative No data available for this section [facility] Hospital Discharge instructions Note Date & Type Note Facility Hospital Discharge instructions No data available for this section [facility] Progress note Note Date & Type Note Facility Progress note No data available for this section [facility] Summary Purpose Family History No Family History Records FoundNo Family History Records FoundNo Family History Records FoundNo Family History Records Found No data available for this section No Family History Records Found Advance Directives No Advanced Directives Records FoundNo Advanced Directives Records FoundNo Advanced Directives Records FoundNo Advanced Directives Records FoundNo Advanced Directives Records Found Additional Source Comments (unrecognized sect ion and content) No Status Records FoundNo Status Records FoundNo Status Records FoundNo Status Records FoundNo Status Records Found INFORMATION SOURCE (unrecogn ized section and content) DATE CREATED AUTHOR AUTHOR'S ORGANIZ ATION 03/12/2018 [facility] ([place]) DATE CREATED AUTHOR AUTHOR'S ORGANIZ ATION [facility]/29/2019 [facility] DATE CREATED AUTHOR AUTHOR'S ORGANIZ ATION 06/25/2021 [facility] DATE CREATED AUTHOR AUTHOR'S ORGANIZ ATION 01/09/2023 [facility] [place]) Source Comments (unrecognize d section and content) In the event this informatio n is protected by the Federal Confidentiality of Alcohol and Drug Abuse Patient Records regulations: The Federal rules restrict any use of the information to criminally investigate or prosecute any alcohol or drug abuse patient.[facility] Care Team (unrecognized sect ion and content) Care Team Personnel Name: MEL GREEN MD Position: P4 Physician - Cardiology Member Role: Salvager Address: Address: [address] [place] [address] [address] Name: Felipa Saleh Position: Quality Review Member Role: Mixing Supervisor Name: NIRAJ MORENO MD Position: P4 Physician - Cardiology Member Role: Cad Engineer Address: Address: [address] [place] [address] Name: NIRAJ DOWNEY MD Member Role: Primary Care Physician Address: Address: [address] [place] [address]- [place] Care Team Related Persons Name: ERNIE SAXENA Address: Home [address] [place], [place] [id number] Patient Care team informatio n (unrecognized section and content) Care Team Personnel Name: MEL GREEN MD Position: P4 Physician - Cardiology Member Role: Salvager Address: Address: [address] [place] [address] Name: Felipa Saleh [facility] [place] Position: Quality Review Member Role: Mixing Supervisor Name: NIRAJ MORENO MD Position: P4 Physician - Cardiology Member Role: Cad Engineer Address: Address: [address] [place] [address] [address] [place] [address] Name: NIRAJ DOWNEY MD Member Role: Primary Care Physician Address: Address: [address] [facility] [address] Care Team Related Persons Name: ERNIE SAXENA Address: Home [address] [place], [place] [id number] FOR RECORDS PERTAINING TO PATIENTS WHO ARE OR HAVE BEEN ENROLLED IN A CHEMICAL DEPENDENCY/SUBSTANCEABUSE PROGRAM, SOME INFORMATION MAY BE OMITTED. This clinical summary was aggregated from multiple sources. Caution should be exercised in using it in the provision of clinical care. This summary normalizes information from multiple sources, and as a consequence, information in this document may materially change the coding, format and clinical context of patient data. In addition, data may be omitted in some cases. CLINICAL DECISIONS SHOULD BE BASED ON THE PRIMARY CLINICAL RECORDS. [facility] [employer] provides no warranty or guarantee of the accuracy or completeness of information in this document.
[2023-04-16 10:05] LABS: Absolute Lymphocyte Count 1.02 X10^3/uL (0.83-4.51); Absolute Neutrophil Count 2.9 X10^3/uL (2.0-7.7); Basophil# 0.05 X10^3/uL; Basophil% 1.1 % (0-1); Eosinophil# 0.29 X10^3/uL; Eosinophils% 6.1 % (0-5); Hematocrit 44.4 % (40-54); Hemoglobin 14.4 g/dL (13.0-16.5); Lymphocyte # 1.02 X10^3/ul (0.83-4.51); Lymphocyte % 21.6 % (19-41); Mean Corp Hgb Conc 32.4 g/dL (32-36); Mean Corpuscular Hgb 29.1 pg (27.0-32.0); Mean Corpuscular Volume 89.9 fL (80-94); Monocyte# 0.44 X10^3/uL; Monocyte% 9.3 % (0-10); NRBC Flagged by Analyzer 0 % (0-5); Neutrophil # 2.86 X10^3/uL (2.7-7.7); Neutrophil % 60.6 % (47-70); Platelet Count 199 K/mm3 (150-450); RBC Distribution Width CV 14.1 % (11.6-14.6); RBC Distribution Width SD 46.5 fl (35.1-43.9); Red Blood Count 4.94 M/mm3 (4.6-6.2); White Blood Count 4.7 K/mm3 (4.4-11.0)
[2023-04-16 10:32] LABS: Hemoglobin A1c 7.4 % (3.8-5.6)
[2023-04-16 11:02] LABS: AST(SGOT) 37 U/L (15-37); Alanine Aminotransfer ALT/SGPT 30 U/L (16-61); Albumin, Serum 3.4 g/dL (3.2-5.0); Alkaline Phosphatase 139 U/L (45-117); Anion Gap 3 (5-15); BUN 18 mg/dL (7-18); Calcium,Total 8.6 mg/dL (8.5-10.1); Chloride 106 mmol/L (98-107); Cholesterol 169 mg/dL (200); Creatinine, Serum 1.06 mg/dL (0.70-1.30); EST Glomerular Filtration Rate 72 mL/min (>60); Est Glom Filt Rate - Afr Amer 87 mL/min (>60); Globulin 3.4 g/dL (2.2-4.2); Glucose 183 mg/dL (74-106); High Density Lipoprotein 46 mg/dL; Magnesium 2.4 mg/dL (1.6-2.6); Potassium 4.2 mmol/L (3.5-5.1); Protein, Total 6.8 g/dL (6.4-8.2); Sodium Level 137 mmol/L (136-145); Thyroid Stim Hormone (TSH) 3.29 uIU/mL (0.358-3.74); Triglycerides 253 mg/dL; Very Low Density Lipoprotein 51 mg/dL (5-40)
[2023-04-23 10:14] LABS: Bacteria 0 SEEN /hpf (None Seen); Mucous, Urine 0 SEEN /hpf (<or=2+); Red Blood Cells-Urine 0 SEEN /hpf (0-5); White Blood Cells 0 SEEN /hpf (0-5)
[2023-04-23 11:49] LABS: Color, Urine Straw (Yellow); Glucose, Dipstick 1000 mg/dl (Normal); Ketone-Dipstick Negative (Negative); Leukocyte Esterase-Dipstick Negative /ul (Negative); Nitrite-Dipstick Negative (Negative); Occult Blood-Urine Negative /ul (Negative); Protein-Dipstick Negative (Negative); Specific Gravity, Urine 1.015 (1.002-1.030); Urine Bilirubin Dipstick Negative (Negative); Urine Clarity Clear (Clear); Urine Urobilinogen Normal (Normal); Urine pH 6.5 (5.0 - 8.0)
[2023-04-23 12:15] LABS: Squamous Epithelial Cells - UA 0-5 SEEN /hpf (0-5)
== END | disposition home or self-care (01) ==
LOC: MFPLAB 09:16
PROVIDERS: PCP Family Medicine; Visit Provider Family Medicine
DX: E11.59 Type 2 diabetes mellitus with other circulatory complications (principal); I47.20 Ventricular tachycardia, unspecified
CPT/HCPCS: 80053; 80061; 81001; 83036; 83735; 84443; 85025

== ENCOUNTER 2023-05-02 09:30 | Outpatient (RCR) | payer MEDICARE, SELFPAY ==
--- NOTE | 2023-03-19 10:53 | HP.PTEVAL_ITS ---
Patient's Visit Information Visit Information Visit Information: SARA SAXENA is a 77 year old M referred to Physical Therapy by Dr. Idania Wagoner DC with a diagnosis of abnormality of gait. Date of Evaluation: 03/19/23 Physical Therapist: Joce Whitney, DPT, OCS, CSCS Visit Plan Frequency: 3x /Week Duration: 4-6 Weeks Plan: 3x/week for 3-6 for Teach exercises for home management HS stretch vestibular balance with head movement and turning STRENGTH ex for LE and core asdn posture to I via silver sneakers or HEP(pt to decide) Include recumbent as patient may get one. Subjective Subjective: Sent over by Dr. Wagoner. She really helped his back but he has fallen a couple times. Muscles got weak when he sat when his back was hurting alot. feels like equilibrium may be worse when he is walking. Legs feel weak. back was hurt for a while after a fall last summer. Fell b/c he lost his balance. Never gets spinning. Just feels unsteady when he is tired. Currently gets dysequilibrium if gets tired and walk a long way. Starts wobbling, Feels better lying or sitting. Needs to rest. Rest and water help. Sleeps well. Has sleep apnea. Retired long time. Spends day not doing much since his back hurt in the summer. open heart surgery 5 yrs ago. Reads alot and mayte [place]. No regular exercises. Basic ADLs. Has cane and uses for long distances/grocery No neuropathy or numbness. Objective Objective: LOB BW on foam with ec and tends posterior. Walks slow but I and stable. Transfers chair without UE easily. Steps reciprocally require B UE adn a pull, avoids Fw weight shift. 2 LOB today with attempted toe raises BW and on foam again BW. reflexes patella and achilles 2/3 B Sensation LE WNL to gross lgiht touch. strength ankles 4-, knees 4, hips 4- B. coordination to reciprocal toe adn heel tap is minimally at deficit. No dizzyness or spinning with position change. UE and LE AROM WFL but HS B very tight at -40 90/90 test. wants to get recumbent bike Balance/Special Test Scores Functional Gait Assessment Score: 27 % Disability: 10.0000 CATSIB Score (Max score 120 seconds): 97 Dizziness Score: 52 30 Second Chair Rise Test Seconds: 10 Goals Goal 1:: 15 on 30 sec sit to stand Goal Time Frame: 4-6 Weeks Goal 2:: I appropr HEP(vest balance, HS stretches and strength) to limit future problems Goal Time Frame: 4-6 Weeks Goal 3:: Pt feel 90% imprved in mobility and safety Goal Time Frame: 4-6 Weeks Rehabilitation Potential Physical Therapy Diagnosis: balance vest deficits and weakness/sedentary leading to imbalance and loss of mobility Rehabilitation Potential: Good Anticipated Interventions Patient/Client Instruction: Educate patient on: Condition and Risk Factors For the Purpose of:: To improve muscle performance and motor function, To increase tolerance to activity/condition/position and To improve ability of physical actions for home/community/work/leisure Therapeutic Exercise to Include: Strength training, Balance training, Postural training and Flexibilty training For the Purpose of:: To improve muscle performance and motor function, To increase tolerance to activity/condition/position, To improve ability of physical actions for home/community/work/leisure, To improve gait and locomotor functions and To improve safety with gait Text: Thank you for the opportunity to evaluate your patient. For Medicare and Medicare HMO plans, please review the plan of care and approve it. It will need to be FAXED BACK to us at [phone] for Medicare purposes. For Medicare only, by signing this I certify the plan of care. Please let me know if there are questions or concerns regarding this plan of care. Physician Signature: Date:
--- NOTE | 2023-05-02 09:59 | HP.PTREVAL ---
Re-Evaluation Intro: Dr. Idania Wagoner, ILIANA, It has been my pleasure to treat SARA SAXENA over the last 17 visits for abnormality of gait. Please see the progress note below for an update on the physical therapy plan of care! Subjective Subjective: Still weak in legs especially with walking distrances, can waddle and list after a while. Walking at home is fine. Uneven terrain is harder. Balance is better overall. Sees weekly. Activities: careful going out on own. Walking long distances >1/2 mile is tough. Turning sometimes has to be careful. Has not been working out in gym but will start next week. Objective Objective/Function: +1 on 30 sec ssit to stand FGA is normal for age. Swinging golf club timidly but safely today and has not in 3-4 yrs. Plan Plan Plan: f/u two weeks to ensure progress with golf swing, compliance with exercises and FGA and sit to stand test. New maintenance goals, good prognosis. Balance/Gait/Functional tests Balance/Special Test Scores Functional Gait Assessment Score: 26 % Disability: 13.3400 CATSIB Score (Max score 120 seconds): 97 Dizziness Score: 52 30 Second Chair Rise Test Seconds: 9 Goals Goals Goal 1:: 15 on 30 sec sit to stand Goal Time Frame: 4-6 Weeks Goal Progress: Goal Met Goal 2:: I appropr HEP(vest balance, HS stretches and strength) to limit future problems Goal Time Frame: 4-6 Weeks Goal Progress: Goal Met Goal 3:: Pt feel 90% imprved in mobility and safety Goal Time Frame: 4-6 Weeks Goal Progress: 75% Goal 4:: Pt maintain improvements while Weaning to HEP FGA and 30 sec sit to stand and gofl swing. Goal Time Frame: 2 Weeks Goal Progress: NEW GOAL Anticipated Interventions Anticipated Interventions Patient/Client Instruction: Educate patient on: Condition and Risk Factors For the Purpose of:: To improve muscle performance and motor function, To increase tolerance to activity/condition/position and To improve ability of physical actions for home/community/work/leisure Therapeutic Exercise to Include: Strength training, Balance training, Postural training and Flexibilty training For the Purpose of:: To improve muscle performance and motor function, To increase tolerance to activity/condition/position, To improve ability of physical actions for home/community/work/leisure, To improve gait and locomotor functions and To improve safety with gait Re-Evaluation Ending Re-evaluation ending: Please do not hesitate to contact me at [phone] by phone or if you have questions or concerns regarding this new plan of care! Sincerely, Joce Whitney, DPT, OCS, CSCS
--- NOTE | 2023-05-16 09:53 | HP.PTDCSUM ---
Discharge Summary D/C summary: It has been my pleasure to treat SARA SAXENA referred by Dr. Idania Wagoner DC, with the diagnosis of abnormality of gait for a total of 18 visit(s). Discharge Date: 05/16/23 Please see the following information for a summary of their discharge status. Subjective Subjective: Done well with exercises. One of his kids moved and he has been busy helping adn had some expeccted back soreness. No dizzyness and no falls. Balance has been very good over last number of weeks. Does need to hold on to bend and pick something up. Pain Right Knee: Pain Intensity (Out of 10): 0 Overall Improvement % Improvement: 75 Objective Objective/Function: +1 more on FGA +6 on 30 sec sit to stand Doing well with his HEP. Goals Goal 1:: 15 on 30 sec sit to stand Goal Progress: Goal Met Goal 2:: I appropr HEP(vest balance, HS stretches and strength) to limit future problems Goal Progress: Goal Met Goal 3:: Pt feel 90% imprved in mobility and safety Goal Progress: 75% Goal 4:: Pt maintain improvements while Weaning to HEP FGA and 30 sec sit to stand and gofl swing. Goal Progress: Goal Met Plan Plan: d/c to HEP D/C Information d/c sentence: If there are questions or concerns regarding this patient's physical therapy, please feel free to call me at [phone]. Thank you for the referral of this patient. Sincerely, Joce Whitney, DPT, OCS, CSCS Balance/Gait/Functional tests Balance/Special Test Scores Functional Gait Assessment Score: 27 % Disability: 10.0000 CATSIB Score (Max score 120 seconds): 97 Dizziness Score: 16 30 Second Chair Rise Test Seconds: 14 Improvement % Improvement: 75
== END 2023-05-02 19:00 | disposition home or self-care (01) ==
LOC: PT 09:30
PROVIDERS: PCP Family Medicine; Referring Provider Chiropractor; Visit Provider Chiropractor
DX: R26.89 Other abnormalities of gait and mobility (principal); E11.59 Type 2 diabetes mellitus with other circulatory complications; I47.20 Ventricular tachycardia, unspecified
CPT/HCPCS: 80053; 80061; 81001; 83036; 83735; 84443; 85025; 97110; 97112; 97116; 97162; 97530

== ENCOUNTER → 2023-07-18 | Outpatient (CLI) | payer MEDICARE, SELFPAY ==
--- NOTE | 2023-07-18 10:42 | RAD_ITS ---
INDICATION: Pain and fall. EXAMINATION/TECHNIQUE: X-RAY - XR Hips Bilateral with Pelvis when performed; Min 5 Views COMPARISON: No relevant prior comparison study available. FINDINGS: PELVIC BONES: No displaced fracture, destructive or sclerotic lesions. Note that overlapping bowel shadows may however obscure fine detail. Sacroiliac joints are unremarkable. No widening of the pubic symphysis. HIPS: There is mild degenerative arthrosis of the hip joints bilaterally with joint space narrowing and mild marginal osteophyte formation. No displaced fracture. SOFT TISSUES: No soft tissue swelling or gas. RAD/Hips B/L min 2 views w/ Pelvis IMPRESSION: Mild degenerative arthrosis of the hip joints bilaterally. No evidence of displaced pelvic or hip fracture. Electronically Signed: Eliel Sun MD at 15:56 EDT ,
[2023-07-18 13:08] LABS: PSA,Total - Annual Screen 0.16 ng/mL (0.00-4.00)
== END | disposition home or self-care (01) ==
LOC: MTLAB 10:42
PROVIDERS: PCP Family Medicine; Referring Provider Family Medicine; Visit Provider Family Medicine
DX: Z12.5 Encounter for screening for malignant neoplasm of prostate (principal); M25.551 Pain in right hip
CPT/HCPCS: 36415; 73521; 84153; G0103

== ENCOUNTER → 2023-07-31 | Outpatient (CLI) | payer MEDICARE, SELFPAY ==
[2023-07-31 12:21] LABS: Absolute Lymphocyte Count 1.26 X10^3/uL (0.83-4.51); Absolute Neutrophil Count 5.1 X10^3/uL (2.0-7.7); Basophil# 0.04 X10^3/uL; Basophil% 0.5 % (0-1); Eosinophil# 0.25 X10^3/uL; Eosinophils% 3.3 % (0-5); Hematocrit 45.2 % (40-54); Hemoglobin 14.5 g/dL (13.0-16.5); Lymphocyte # 1.26 X10^3/ul (0.83-4.51); Lymphocyte % 16.8 % (19-41); Mean Corp Hgb Conc 32.1 g/dL (32-36); Mean Corpuscular Hgb 29.7 pg (27.0-32.0); Mean Corpuscular Volume 92.6 fL (80-94); Mean Platelet Vol. 10.4 fl (6.2-12.0); Monocyte# 0.66 X10^3/uL; Monocyte% 8.8 % (0-10); NRBC Flagged by Analyzer 0 % (0-5); Neutrophil # 5.09 X10^3/uL (2.7-7.7); Neutrophil % 68.2 % (47-70); POSITIVE MORPHOLOGY YES; Platelet Count 293 K/mm3 (150-450); RBC Distribution Width CV 13.8 % (11.6-14.6); RBC Distribution Width SD 46.8 fl (35.1-43.9); Red Blood Count 4.88 M/mm3 (4.6-6.2); White Blood Count 7.5 K/mm3 (4.4-11.0)
[2023-07-31 12:24] LABS: Erythrocyte Sedimentation Rate 12 mm/hr (0-20)
[2023-07-31 13:04] LABS: AST(SGOT) 37 U/L (15-37); Alanine Aminotransfer ALT/SGPT 34 U/L (16-61); Albumin, Serum 3.4 g/dL (3.2-5.0); Alkaline Phosphatase 307 U/L (45-117); Anion Gap 7 (5-15); BUN 26 mg/dL (7-18); BUN/Creat Ratio 20.2 RATIO (10-20); Chloride 104 mmol/L (98-107); Creatinine, Serum 1.29 mg/dL (0.70-1.30); EST Glomerular Filtration Rate 58 mL/min (>60); Est Glom Filt Rate - Afr Amer 70 mL/min (>60); Globulin 3.5 g/dL (2.2-4.2); Glucose 103 mg/dL (74-106); Protein, Total 6.9 g/dL (6.4-8.2); Sodium Level 137 mmol/L (136-145)
[2023-08-01 09:33] LABS: GGTP 69 U/L (15-85)
== END | disposition home or self-care (01) ==
LOC: MFPLAB 10:36
PROVIDERS: PCP Family Medicine; Visit Provider Family Medicine
DX: R74.8 Abnormal levels of other serum enzymes (principal)
CPT/HCPCS: 36415; 80053; 82977; 85025; 85652

== ENCOUNTER → 2023-11-19 | Outpatient (CLI) | payer MEDICARE, SELFPAY ==
[2023-11-19 16:27] LABS: AST(SGOT) 53 U/L (15-37); Alanine Aminotransfer ALT/SGPT 43 U/L (16-61); Albumin, Serum 3.5 g/dL (3.2-5.0); Alkaline Phosphatase 142 U/L (45-117); Anion Gap 5 (5-15); BUN 22 mg/dL (7-18); CPK Total, Creatine Kinase 105 U/L (39-308); Calcium,Total 8.9 mg/dL (8.5-10.1); Chloride 106 mmol/L (98-107); Creatinine, Serum 1.22 mg/dL (0.70-1.30); EST Glomerular Filtration Rate 61 mL/min (>60); Est Glom Filt Rate - Afr Amer 74 mL/min (>60); Ferritin 78 ng/mL (26-388); Globulin 3.4 g/dL (2.2-4.2); Glucose 232 mg/dL (74-106); Magnesium 2.3 mg/dL (1.6-2.6); Potassium 4.1 mmol/L (3.5-5.1); Protein, Total 6.9 g/dL (6.4-8.2); Sodium Level 138 mmol/L (136-145)
== END | disposition home or self-care (01) ==
LOC: MFPLAB 12:19
PROVIDERS: PCP Family Medicine; Visit Provider Family Medicine
DX: M79.10 Myalgia, unspecified site (principal)
CPT/HCPCS: 36415; 80053; 82550; 82728; 83735; 84443

== ENCOUNTER → 2023-12-19 | Outpatient (CLI) | payer MEDICARE, SELFPAY ==
[2023-12-19 15:03] LABS: Absolute Lymphocyte Count 0.78 X10^3/uL (0.83-4.51); Absolute Neutrophil Count 3.3 X10^3/uL (2.0-7.7); Basophil# 0.05 X10^3/uL; Eosinophil# 0.25 X10^3/uL; Eosinophils% 5.2 % (0-5); Hematocrit 43.4 % (40-54); Hemoglobin 13.9 g/dL (13.0-16.5); Lymphocyte # 0.78 X10^3/ul (0.83-4.51); Lymphocyte % 16.4 % (19-41); Mean Corpuscular Hgb 29.3 pg (27.0-32.0); Mean Corpuscular Volume 91.4 fL (80-94); Monocyte# 0.35 X10^3/uL; Monocyte% 7.3 % (0-10); NRBC Flagged by Analyzer 0 % (0-5); Neutrophil # 3.31 X10^3/uL (2.7-7.7); Neutrophil % 69.5 % (47-70); Platelet Count 207 K/mm3 (150-450); RBC Distribution Width CV 13.4 % (11.6-14.6); RBC Distribution Width SD 45.4 fl (35.1-43.9); Red Blood Count 4.75 M/mm3 (4.6-6.2); White Blood Count 4.8 K/mm3 (4.4-11.0)
[2023-12-19 15:19] LABS: AST(SGOT) 43 U/L (15-37); Alanine Aminotransfer ALT/SGPT 37 U/L (16-61); Albumin, Serum 3.5 g/dL (3.2-5.0); Alkaline Phosphatase 125 U/L (45-117); Anion Gap 5 (5-15); BUN 20 mg/dL (7-18); BUN/Creat Ratio 15.4 RATIO (10-20); Calcium,Total 9.2 mg/dL (8.5-10.1); Chloride 106 mmol/L (98-107); Cholesterol 109 mg/dL (200); EST Glomerular Filtration Rate 57 mL/min (>60); Est Glom Filt Rate - Afr Amer 69 mL/min (>60); Globulin 3.5 g/dL (2.2-4.2); Glucose 247 mg/dL (74-106); High Density Lipoprotein 59 mg/dL; Sodium Level 137 mmol/L (136-145); Triglycerides 182 mg/dL; Very Low Density Lipoprotein 36 mg/dL (5-40)
[2023-12-19 15:23] LABS: Bacteria 0 SEEN /hpf (None Seen); Mucous, Urine 0 SEEN /hpf (<or=2+); Red Blood Cells-Urine 0 SEEN /hpf (0-5); Squamous Epithelial Cells - UA 0 SEEN /hpf (0-5); White Blood Cells 0 SEEN /hpf (0-5)
[2023-12-19 17:35] LABS: Color, Urine Yellow (Yellow); Glucose, Dipstick 1000 mg/dl (Normal); Ketone-Dipstick Negative (Negative); Leukocyte Esterase-Dipstick Negative /ul (Negative); Nitrite-Dipstick Negative (Negative); Occult Blood-Urine Negative /ul (Negative); Protein-Dipstick Negative (Negative); Specific Gravity, Urine 1.015 (1.002-1.030); Urine Bilirubin Dipstick Negative (Negative); Urine Clarity Clear (Clear); Urine Urobilinogen Normal (Normal)
[2023-12-19 17:53] LABS: Microalbumin,Random Urine 6.5 mg/L (NO RANGE EST.); Microalbumin:Creatinine Ratio 10.6 mg/g CRE (<30 mg/g CRE)
== END | disposition home or self-care (01) ==
LOC: MFPLAB 11:42
PROVIDERS: PCP Family Medicine; Referring Provider Family Medicine; Visit Provider Family Medicine
DX: E11.8 Type 2 diabetes mellitus with unspecified complications (principal)
CPT/HCPCS: 36415; 80053; 80061; 81001; 82043; 82570; 83036; 85025

== ENCOUNTER → 2024-04-02 | Outpatient (CLI) | payer MEDICARE, SELFPAY ==
[2024-04-02 15:24] LABS: Absolute Lymphocyte Count 1.07 X10^3/uL (0.83-4.51); Absolute Neutrophil Count 3.8 X10^3/uL (2.0-7.7); Basophil# 0.06 X10^3/uL; Eosinophil# 0.34 X10^3/uL; Eosinophils% 5.9 % (0-5); Hematocrit 44.6 % (40-54); Lymphocyte # 1.07 X10^3/ul (0.83-4.51); Lymphocyte % 18.5 % (19-41); Mean Corp Hgb Conc 31.4 g/dL (32-36); Mean Corpuscular Hgb 29.5 pg (27.0-32.0); Mean Corpuscular Volume 93.9 fL (80-94); Mean Platelet Vol. 10.6 fl (6.2-12.0); Monocyte# 0.48 X10^3/uL; Monocyte% 8.3 % (0-10); NRBC Flagged by Analyzer 0 % (0-5); Neutrophil # 3.79 X10^3/uL (2.7-7.7); Neutrophil % 65.4 % (47-70); Platelet Count 213 K/mm3 (150-450); RBC Distribution Width CV 13.9 % (11.6-14.6); RBC Distribution Width SD 48.1 fl (35.1-43.9); Red Blood Count 4.75 M/mm3 (4.6-6.2); White Blood Count 5.8 K/mm3 (4.4-11.0)
[2024-04-02 15:53] LABS: ALB/GLOB Ratio 1.1 RATIO (0.9-2.4); AST(SGOT) 46 U/L (15-37); Alanine Aminotransfer ALT/SGPT 44 U/L (16-61); Albumin, Serum 3.5 g/dL (3.2-5.0); Alkaline Phosphatase 114 U/L (45-117); Anion Gap 6 (5-15); BUN 19 mg/dL (7-18); BUN/Creat Ratio 15.8 RATIO (10-20); Chloride 104 mmol/L (98-107); Cholesterol 111 mg/dL (200); EST Glomerular Filtration Rate 62 mL/min (>60); Est Glom Filt Rate - Afr Amer 76 mL/min (>60); Globulin 3.3 g/dL (2.2-4.2); Glucose 122 mg/dL (74-106); High Density Lipoprotein 50 mg/dL; Potassium 4.2 mmol/L (3.5-5.1); Protein, Total 6.8 g/dL (6.4-8.2); Sodium Level 138 mmol/L (136-145); Triglycerides 135 mg/dL; Very Low Density Lipoprotein 27 mg/dL (5-40)
[2024-04-04 20:01] LABS: Hemoglobin A1c 6.6 % (3.8-5.6)
== END | disposition home or self-care (01) ==
LOC: MFPLAB 12:10
PROVIDERS: PCP Family Medicine; Referring Provider Family Medicine; Visit Provider Family Medicine
DX: E11.8 Type 2 diabetes mellitus with unspecified complications (principal)
CPT/HCPCS: 36415; 80053; 80061; 83036; 85025

== ENCOUNTER → 2024-04-24 | Outpatient (CLI) | payer MEDICARE, SELFPAY ==
--- NOTE | 2024-04-24 11:26 | US_ITS ---
PROCEDURE: THYROID REASON FOR EXAM: Nodule TECHNIQUE: Thyroid ultrasound COMPARISON: 03/15/2022 FINDINGS: Right thyroid lobe measures 4.9 x 1.6 x 1.8 cm. Left thyroid lobe measures 4.7 x 1.3 x 1.7 cm. Isthmus thickness is0.4 cm. Thyroid Size: Normal Background Echotexture: Normal Thyroid Nodules: None Right lesion 1: Solid hypoechoic nodule with smooth margins measuring 0.5 x 0.4 x 0.4 cm. TI-RADS 4 Right lesion 2: Solid hypoechoic focus with smooth margins measuring 0.5 x 0.5 x 0.4 cm. TI-RADS 4 US/Thyroid IMPRESSION: TI-RADS 4 right thyroid nodules with no significant change from prior study. Reading Location: [facility]
== END | disposition home or self-care (01) ==
LOC: US 11:24
PROVIDERS: PCP Family Medicine; Referring Provider Family Medicine; Visit Provider Family Medicine
DX: E04.1 Nontoxic single thyroid nodule (principal)
CPT/HCPCS: 76536

== ENCOUNTER 2024-06-02 16:07 | Outpatient (CLI) | payer MEDICARE, SELFPAY ==
[2024-06-02 16:09] LABS: Red Blood Cells-Urine 0 SEEN /hpf (0-5)
[2024-06-02 19:35] LABS: Color, Urine Yellow (Yellow); Glucose, Dipstick 1000 mg/dl (Normal); Ketone-Dipstick Negative (Negative); Leukocyte Esterase-Dipstick Negative /ul (Negative); Nitrite-Dipstick Negative (Negative); Occult Blood-Urine Negative /ul (Negative); Protein-Dipstick Negative (Negative); Urine Bilirubin Dipstick Negative (Negative); Urine Clarity Clear (Clear); Urine Urobilinogen 1 mg/dl (Normal)
[2024-06-02 20:04] LABS: Bacteria RARE /hpf (None Seen); Hyaline Cast 0-5 SEEN /lpf (0-5); Mucous, Urine 1+ /hpf (<or=2+); Squamous Epithelial Cells - UA 0-5 SEEN /hpf (0-5); White Blood Cells 0-5 SEEN /hpf (0-5)
[2024-06-02 20:56] LABS: Microalbumin,Random Urine < 12.0 mg/L (NO RANGE EST.); Microalbumin:Creatinine Ratio UNABLE TO CALCULATE mg/g CRE
== END 2024-06-02 23:59 | disposition home or self-care (01) ==
LOC: MFPLAB 16:07
PROVIDERS: PCP Family Medicine; Referring Provider Family Medicine; Visit Provider Family Medicine
DX: N32.81 Overactive bladder (principal); E11.9 Type 2 diabetes mellitus without complications
CPT/HCPCS: 81001; 82043; 82570

== ENCOUNTER → 2024-07-23 | Outpatient (CLI) | payer MEDICARE, SELFPAY ==
--- NOTE | 2024-07-23 10:08 | RAD_ITS ---
PROCEDURE: CHEST PA AND LATERAL 07/23/2024 REASON FOR EXAM: COUGH, BRONCHITIS TECHNIQUE: Frontal and lateral views of the chest. COMPARISON: 08/23/2022 FINDINGS: No focal consolidation. Mild pulmonary vascular congestion. Stable cardiomegaly. Left chest pacer. Evidence of prior CABG. Median sternotomy wires. Bibasilar subsegmental atelectasis. No pleural effusion or pneumothorax. No acute fractures. RAD/Chest PA and Lateral IMPRESSION: No focal consolidation. Mild pulmonary vascular congestion. Stable cardiomegal y. Reading Location: [id number]
== END | disposition home or self-care (01) ==
LOC: MTRAD 10:06
PROVIDERS: PCP Family Medicine; Referring Provider Family Medicine; Visit Provider Family Medicine
DX: R05.9 Cough, unspecified (principal); J20.9 Acute bronchitis, unspecified
CPT/HCPCS: 71046

== ENCOUNTER → 2024-11-02 | Outpatient (CLI) | payer MEDICARE, SELFPAY ==
--- NOTE | 2024-11-02 15:58 | RAD_ITS ---
PROCEDURE: RIBS UNIL 2V NO CXR 11/02/2024 REASON FOR EXAM: RIGHT RIB PAIN TECHNIQUE: Procedure Code: [id number] Modality: DX Procedure: RIBS UNIL 2V NO CXR COMPARISON: July 23, 2024 FINDINGS: Findings: Nondisplaced fracture of the anterolateral right 7th rib. No pneumothorax on the right. Subsegmental atelectasis and scant pleural fluid right lung base. Other: Prior median sternotomy. AICD in place. RAD/Ribs Unil 2V No CXR IMPRESSION: Nondisplaced fracture anterolateral right 7th rib. No pneumothorax on the righ t Reading Location: [id number]
== END | disposition home or self-care (01) ==
LOC: MTRAD 15:58
PROVIDERS: PCP Family Medicine
DX: R07.89 Other chest pain (principal)
CPT/HCPCS: 71100

== ENCOUNTER → 2025-02-04 | Outpatient (CLI) | payer MEDICARE, SELFPAY ==
[2025-02-04 15:48] LABS: PSA,Total - Annual Screen 0.19 ng/mL (0.02-4.00)
== END | disposition home or self-care (01) ==
LOC: MTLAB 13:10
PROVIDERS: PCP Family Medicine
DX: Z12.5 Encounter for screening for malignant neoplasm of prostate (principal)
CPT/HCPCS: 36415; 84153; G0103

== ENCOUNTER → 2025-02-10 | Outpatient (CLI) | payer MEDICARE, SELFPAY ==
[2025-02-10 12:36] LABS: Hematocrit 41.4 % (40-54); Hemoglobin 13.7 g/dL (13.0-16.5); Immature Granulocytes Count 0.050 X10^3/uL (0.0-0.0); Mean Corp Hgb Conc 33.1 g/dL (32-36); Mean Corpuscular Volume 91.2 fL (80-94); Mean Platelet Vol. 10.7 fl (6.2-12.0); NRBC Flagged by Analyzer 0 % (0-5); Platelet Count 204 K/mm3 (150-450); RBC Distribution Width CV 13.5 % (11.6-14.6); RBC Distribution Width SD 45.2 fl (35.1-43.9); Red Blood Count 4.54 M/mm3 (4.6-6.2); White Blood Count 5.3 K/mm3 (4.4-11.0)
[2025-02-10 12:37] LABS: AST(SGOT) 50 U/L (<=37); Alanine Aminotransfer ALT/SGPT 33 U/L (<=46); Albumin, Serum 4.0 g/dL (3.4-4.8); Alkaline Phosphatase 131 U/L (40-129); Anion Gap 11 (5-15); BUN 21 mg/dL (4-19); BUN/Creat Ratio 17.8 RATIO (10-20); Calcium,Total 9.1 mg/dL (7.6-11.0); Carbon Dioxide 24.2 mmol/L (21.0-32.0); Chloride 103 mmol/L (98-108); Cholesterol 124 mg/dL (<=200); Globulin 2.7 g/dL (2.2-4.2); Glucose 158 mg/dL (70-99); Low Density Lipoprotein Calc. 46 mg/dL; Potassium 4.0 mmol/L (3.3-5.1); Triglycerides 207 mg/dL; Very Low Density Lipoprotein 41 mg/dL (5-40); cholesterol:hdl ratio screen 2.79
[2025-02-10 15:24] LABS: Mucous, Urine 0 SEEN /hpf (<or=2+)
[2025-02-10 17:52] LABS: Color, Urine Yellow (Yellow); Glucose, Dipstick 100 mg/dl (Normal); Ketone-Dipstick Negative (Negative); Leukocyte Esterase-Dipstick Negative /ul (Negative); Nitrite-Dipstick Negative (Negative); Occult Blood-Urine Negative /ul (Negative); Protein-Dipstick Negative (Negative); Specific Gravity, Urine 1.015 (1.002-1.030); Urine Bilirubin Dipstick Negative (Negative)
[2025-02-10 18:40] LABS: Red Blood Cells-Urine 0-5 SEEN /hpf (0-5); Squamous Epithelial Cells - UA 0-5 SEEN /hpf (0-5)
[2025-02-10 18:47] LABS: Creatinine, Urine (random) 120.00 mg/dL (39.00-259.00); Microalbumin,Random Urine 16.1 mg/L (<20 mg/L)
== END | disposition home or self-care (01) ==
LOC: MFPLAB 10:38
PROVIDERS: PCP Family Medicine; Visit Provider Family Medicine
DX: E11.8 Type 2 diabetes mellitus with unspecified complications (principal)
CPT/HCPCS: 36415; 80053; 80061; 81001; 82043; 82570; 83036; 85025